=== PATIENT | female | born 1980 | race African-American/Black ===

== ENCOUNTER 2017-11-17 05:38 | Inpatient (IN) | payer BC, OTHER ==
[2017-11-17] MEDS ORDERED: FENTAnyl 50 MCG/ML VIAL (07:30)
[2017-11-17] MEDS ORDERED: DEXAMETHASONE 4 MG/ML 1 ML INJ (07:46)
[2017-11-17] MEDS ORDERED: SUCCINYLCHOLINE CHLORIDE 100 MG/5 ML SYG IV (07:50)
[2017-11-17] MEDS ORDERED: PROPOFOL 20 ML (07:50)
[2017-11-17] MEDS ORDERED: SUGAMMADEX SODIUM 200 MG/2 ML VIAL IV (07:50)
[2017-11-17] MEDS ORDERED: LIDOCAINE 100 MG SYRINGE (07:50)
[2017-11-17] MEDS ORDERED: CEFAZOLIN 1 GM INJ (07:50)
[2017-11-17] MEDS ORDERED: ROCURONIUM 50 MG INJ (07:50)
[2017-11-17] MEDS ORDERED: METOCLOPRAMIDE 10 MG INJ IV (08:00)
[2017-11-17] MEDS ORDERED: FENTAnyl 50 MCG/ML VIAL IV (08:00)
[2017-11-17] MEDS ORDERED: HYDROmorphONE (0.2 MG/ML) 10ML SYG IV (08:00)
[2017-11-17] MEDS ORDERED: morphine (1 MG/ML) 10ML SYRINGE IV (08:00)
[2017-11-17] MEDS ORDERED: DIPHENHYDRAMINE 50 MG INJ IV (08:00)
[2017-11-17] MEDS ORDERED: ROPIVACAINE 0.5 % 30 ML VIAL (08:16)
[2017-11-17] MEDS ORDERED: ONDANSETRON 4 MG INJ (08:31)
[2017-11-17] MEDS: HYDROmorphONE (0.2 MG/ML) 10ML SYG IV ×4 (08:43→09:21)
[2017-11-17] MEDS: MEPERIDINE 25 MG INJ IV (08:54)
[2017-11-17] MEDS: ONDANSETRON 4 MG INJ IV (09:10)
[2017-11-17] MEDS ORDERED: HYDROmorphONE 0.2 MG/ML PCA (09:27)
[2017-11-17] MEDS: HYDROmorphONE 0.2 MG/ML PCA IV ×2 (09:45→21:13)
[2017-11-17] MEDS: FENTAnyl 50 MCG/ML VIAL IV ×2 (09:48→09:57)
[2017-11-17] MEDS: LACTATED RINGER'S 1,000 ML IV ×3 (11:49→21:16)
[2017-11-17] MEDS: DIPHENHYDRAMINE 25 MG CAP PO (19:00)
[2017-11-17] MEDS: HYDROmorphONE 2 MG/ML SYG IV (22:31)
[2017-11-18] MEDS: HYDROmorphONE 2 MG/ML SYG IV ×5 (02:13→18:30)
[2017-11-18] MEDS: LACTATED RINGER'S 1,000 ML IV ×2 (05:22→15:22)
[2017-11-18] MEDS: MAGNESIUM HYDROXIDE 30ML CUP PO ×2 (05:45→18:12)
[2017-11-18] MEDS: BISACODYL 10 MG SUPP PR ×2 (05:45→17:00)
[2017-11-18 05:55] LABS: ADD MAN DIFF? NO
[2017-11-18 06:03] LABS: WHITE BLOOD COUNT 10.6 10^3/ul (4.8-10.8)
[2017-11-18 06:03] LABS: BASOPHILS % 0.3 % (0.0-2.0); EOSINOPHILS % 0.2 % (0.0-7.0); HEMATOCRIT 28.8 % (37.0-47.0); HEMOGLOBIN 9.1 g/dl (12.0-16.0); LYMPHOCYTES # 1.9 10^3/ul (0.8-2.9); LYMPHOCYTES % 18.1 % (15.0-51.0); MEAN CORPUSCULAR HEMOGLOBIN 24.7 pg (29.0-33.0); MEAN CORPUSCULAR HGB CONC 31.6 g/dl (32.0-37.0); MEAN CORPUSCULAR VOLUME 78.3 fl (82.0-101.0); MEAN PLATELET VOLUME 9.8 fl (7.4-10.4); MONOCYTES % 9.5 % (0.0-11.0); NEUTROPHIL # 7.6 10^3/ul (1.6-7.5); NEUTROPHILS % 71.5 % (39.0-77.0); PLATELET COUNT 267 10^3/UL (140-415); RED BLOOD COUNT 3.68 10^6/ul (4.20-5.40); RED CELL DISTRIBUTION WIDTH 15.5 % (11.5-14.5)
[2017-11-18 07:34] LABS: ALANINE AMINOTRANSFERASE 34 IU/L (13-69); ALBUMIN 3.1 g/dl (3.3-4.9); ALBUMIN/GLOBULIN RATIO 1.06; ALKALINE PHOSPHATASE 58 IU/L (42-121); ANION GAP 11 (8-16); ASPARTATE AMINO TRANSFERASE 43 IU/L (15-46); BILIRUBIN,INDIRECT 0.4 mg/dl (0-1.1); BILIRUBIN,TOTAL 0.4 mg/dl (0.2-1.3); BLOOD UREA NITROGEN 15 mg/dl (7-20); CALCIUM 8.4 mg/dl (8.4-10.2); CARBON DIOXIDE 27 mmol/L (21-31); CHLORIDE 105 mmol/L (97-110); CREATININE 0.58 mg/dl (0.44-1.00); GLUCOSE 91 mg/dl (70-220); POTASSIUM 3.2 mmol/L (3.5-5.1); SODIUM 140 mmol/L (135-144)
[2017-11-18] MEDS ORDERED: OXYCODONE/ACETAMINOPHEN (5/325) TAB PO ×2 (09:00)
[2017-11-18] MEDS: OXYCODONE/ACETAMINOPHEN (5/325) TAB PO ×2 (11:31→19:54)
[2017-11-18] MEDS: ONDANSETRON 4 MG INJ IV ×2 (13:07→19:51)
[2017-11-18] MEDS: ZOLPIDEM 5 MG TAB PO (21:24)
[2017-11-19] MEDS: LACTATED RINGER'S 1,000 ML IV ×2 (03:00→11:00)
[2017-11-19] MEDS: ONDANSETRON 4 MG INJ IV ×2 (05:12→10:11)
[2017-11-19] MEDS: OXYCODONE/ACETAMINOPHEN (5/325) TAB PO ×2 (05:13→10:10)
[2017-11-19 05:16] LABS: ADD MAN DIFF? NO
[2017-11-19 05:20] LABS: WHITE BLOOD COUNT 6.8 10^3/ul (4.8-10.8)
[2017-11-19 05:20] LABS: BASOPHILS % 0.6 % (0.0-2.0); EOSINOPHILS # 0.3 10^3/ul (0.0-0.5); EOSINOPHILS % 4.7 % (0.0-7.0); HEMATOCRIT 29.7 % (37.0-47.0); HEMOGLOBIN 9.5 g/dl (12.0-16.0); LYMPHOCYTES # 1.8 10^3/ul (0.8-2.9); LYMPHOCYTES % 25.9 % (15.0-51.0); MEAN CORPUSCULAR HEMOGLOBIN 24.6 pg (29.0-33.0); MEAN CORPUSCULAR VOLUME 76.9 fl (82.0-101.0); MEAN PLATELET VOLUME 9.7 fl (7.4-10.4); MONOCYTE # 0.6 10^3/ul (0.3-0.9); MONOCYTES % 9.1 % (0.0-11.0); NEUTROPHIL # 4.1 10^3/ul (1.6-7.5); NEUTROPHILS % 59.6 % (39.0-77.0); PLATELET COUNT 279 10^3/UL (140-415); RED BLOOD COUNT 3.86 10^6/ul (4.20-5.40); RED CELL DISTRIBUTION WIDTH 15.4 % (11.5-14.5)
[2017-11-19 06:06] LABS: ALANINE AMINOTRANSFERASE 35 IU/L (13-69); ALBUMIN 3.1 g/dl (3.3-4.9); ALBUMIN/GLOBULIN RATIO 1.06; ALKALINE PHOSPHATASE 57 IU/L (42-121); ANION GAP 8 (8-16); ASPARTATE AMINO TRANSFERASE 39 IU/L (15-46); BILIRUBIN,INDIRECT 0.3 mg/dl (0-1.1); BILIRUBIN,TOTAL 0.3 mg/dl (0.2-1.3); BLOOD UREA NITROGEN 7 mg/dl (7-20); CALCIUM 8.3 mg/dl (8.4-10.2); CARBON DIOXIDE 32 mmol/L (21-31); CHLORIDE 105 mmol/L (97-110); CREATININE 0.57 mg/dl (0.44-1.00); GLUCOSE 94 mg/dl (70-220); SODIUM 142 mmol/L (135-144)
[2017-11-19 06:12] LABS: POTASSIUM 2.7 mmol/L (3.5-5.1)
[2017-11-19] MEDS: POTASSIUM CHLORIDE (SR) 20 MEQ TAB PO ×2 (06:49→13:09)
[2017-11-19] MEDS: METOCLOPRAMIDE 10 MG TAB PO (12:30)
[2017-11-19 14:15] LABS: ANION GAP 9 (8-16); BLOOD UREA NITROGEN 7 mg/dl (7-20); CALCIUM 8.6 mg/dl (8.4-10.2); CARBON DIOXIDE 32 mmol/L (21-31); CHLORIDE 105 mmol/L (97-110); CREATININE 0.55 mg/dl (0.44-1.00); GLUCOSE 106 mg/dl (70-220); POTASSIUM 3.1 mmol/L (3.5-5.1); SODIUM 143 mmol/L (135-144)
== END 2017-11-19 17:33 | disposition home or self-care (01) | DRG 743 ==
LOC: SDS 05:38 → REC 08:37 → MS1 10:25
PROVIDERS: Obstetrics & Gynecology
PROC: 0U5B0ZZ Destruction of Endometrium, Open Approach (ICD-10-PCS; principal; 2017-11-17 07:25)
PROC: 0UB00ZZ Excision of Right Ovary, Open Approach (ICD-10-PCS; 2017-11-17 07:25)
DX: N80.9 Endometriosis, unspecified (principal); R10.2 Pelvic and perineal pain; N73.6 Female pelvic peritoneal adhesions (postinfective); N92.0 Excessive and frequent menstruation with regular cycle; G89.29 Other chronic pain; Z98.84 Bariatric surgery status; N83.201 Unspecified ovarian cyst, right side
CPT/HCPCS: 80048; 80053; 84702; 85025; 86850; 86900; 86901; 87086; 88304